=== PATIENT | female | born 1995 | race Hispanic/Latino ===

== ENCOUNTER 2019-03-01 09:17 | Outpatient (CLI) | payer BC ==
--- NOTE | 2019-03-01 12:05 | MRI ---
Exam: Brain MRI with and without contrast HISTORY: Hyperprolactinemia. Lactic menstrual cycles. COMPARISON: None FINDINGS: Hemorrhage: No parenchymal hemorrhage or extra-axial hematoma Calvarium: Appropriate T1 marrow signal intensity Midline brain parenchyma: Unremarkable Cerebrum:No cerebral mass, mass effect or midline shift. Brain volume is age-appropriate. Cortical gr ay-white white matter differentiation is preserved. No significant T2 or FLAIR white matter hyperintensities. Ventricles: No evidence of hydrocephalus. Sinuses and mastoid air cells: Adequate aeration Diffusion: Central arterial flow is maintained. Absent restricted diffusion. Postcontrast images: No pathologic enhancement of the brain parenchyma. Dedicated imaging of the sella/pituitary gland: There is appropriate T1 signal intensity of the pitui tary gland. There is no evidence of a macroadenoma. Pituitary stalk is midline. On the dynamic postcontrast images, there is no evidence of a microadenoma. No mass effect upon the optic chiasm and prechiasmatic optic nerves. IMPRESSION: 1. No MR evidence of a pituitary macroadenoma or microadenoma. 2. No pathologic enhancement the brain parenchyma.
== END 2019-03-01 09:18 | disposition home or self-care (01) ==
LOC: SCSMRI 09:17
PROVIDERS: ATTEND Internal Medicine Endocrinology, Diabetes & Metabolism
DX: E22.1 Hyperprolactinemia (principal)
CPT/HCPCS: 70553